=== PATIENT | female | born 1990 | race Caucasian/White ===

== ENCOUNTER 2021-01-16 00:12 | Emergency (ER) | payer BC, OTHER ==
[2021-01-16 00:27] VITALS: BP 121/77; PULSE 51
[2021-01-16] MEDS ORDERED: diphenhydrAMINE 25 MG Cap PO ONE (00:39)
--- NOTE | 2021-01-16 00:45 | EDM.PDOC ---
ED HPI GENERAL MEDICAL PROBLEM - General Chief Complaint: Genitourinary Problem Stated Complaint: BLOOD IN URINE Time Seen by Provider: 01/16/21 00:39 Source of Information: Reports: Patient History Limitations: Reports: No Limitations - History of Present Illness INITIAL COMMENTS - FREE TEXT/NARRATIVE: Josselin is a 30-year-old female from [facility] who is here visiting family. She reports that earlier today she started develop urgency, frequency, and burning with urination. She also started to notice hematuria. Patient does have a history of recurrent UTIs but also carries a recent diagnosis of interstitial cystitis. She has not had any fever or chills. She does have a previous history of pyelonephritis as well but denies any flank pain at this time. He has been pushing fluids today. - Related Data Allergies Allergy/AdvReac Type Severity Reaction Status Date / Time sulfamethoxazole Allergy Hives Verified 01/16/21 00:29 [From ] trimethoprim [From ] Allergy Hives Verified 01/16/21 00:29 Home Meds: Home Meds Cetirizine [ZyrTEC] 10 mg PO DAILY 01/03/15 [History] Levothyroxine 75 mcg PO DAILY 01/03/15 [History] Escitalopram [Lexapro] 5 mg PO DAILY 01/16/21 [History] Past Medical History HEENT History: Reports: Impaired Vision Cardiovascular History: Reports: Heart Murmur Genitourinary History: Reports: UTI, Recurrent Musculoskeletal History: Reports: Fracture Neurological History: Reports: Concussion Psychiatric History: Reports: Anxiety, Depression Endocrine/Metabolic History: Reports: Hypothyroidism Dermatologic History: Reports: Urticaria Other Dermatologic History: chronic hives - Infectious Disease History Infectious Disease History: Reports: Chicken Pox - Past Surgical History HEENT Surgical History: Reports: Adenoidectomy, Tonsillectomy Social & Family History - Tobacco Use Tobacco Use Status *Q: Never Tobacco User - Recreational Drug Use Recreational Drug Use: Yes Drug Use in Last 12 Months: Yes Recreational Drug Type: Reports: Marijuana/Hashish Recreational Drug Use Frequency: Monthly ED ROS GENERAL - Review of Systems Review Of Systems: See Below Constitutional: Reports: No Symptoms HEENT: Reports: No Symptoms Respiratory: Reports: No Symptoms Cardiovascular: Reports: No Symptoms Endocrine: Reports: No Symptoms GI/Abdominal: Reports: Abdominal Pain (Suprapubic pain) : Reports: Dysuria, Frequency, Hematuria, Urgency Musculoskeletal: Reports: No Symptoms Skin: Reports: No Symptoms Neurological: Reports: No Symptoms Psychiatric: Reports: No Symptoms Hematologic/Lymphatic: Reports: No Symptoms Immunologic: Reports: No Symptoms ED EXAM, RENAL/ - Physical Exam Exam: See Below Exam Limited By: No Limitations General Appearance: Alert, No Apparent Distress Eye Exam: Bilateral Eye: EOMI, PERRL Head: Atraumatic, Normocephalic Respiratory/Chest: No Respiratory Distress, Lungs Clear, Normal Breath Sounds Cardiovascular: Normal Peripheral Pulses, Regular Rate, Rhythm, No Murmur GI/Abdominal: Normal Bowel Sounds, Soft, Tender (Mild suprapubic tenderness to palpation) Back Exam: Normal Inspection, Full Range of Motion. No: CVA Tenderness (R), CVA Tenderness (L) Neurological: Alert, Oriented, Normal Cognition, No Motor/Sensory Deficits Psychiatric: Normal Affect, Normal Mood Course - Vital Signs Last Recorded V/S: Last Vital Signs Temp 36.6 C 01/16/21 00:32 Pulse 51 L 01/16/21 00:32 Resp 16 01/16/21 00:32 BP 121/77 01/16/21 00:32 Pulse Ox 100 01/16/21 00:32 - Orders/Labs/Meds Labs: Laboratory Tests 01/16/21 Range/Units 00:25 Urine Color Other A (YELLOW) Urine Appearance Clear (CLEAR) Urine pH 6.5 (5.0-8.0) Ur Specific [place] 1.010 (1.008-1.030) Urine Protein Negative (NEGATIVE) mg/dL Urine Glucose (UA) Negative (NEGATIVE) mg/dL Urine Ketones Negative (NEGATIVE) mg/dL Urine Occult Blood Large H (NEGATIVE) Urine Nitrite Negative (NEGATIVE) Urine Bilirubin Negative (NEGATIVE) Urine Urobilinogen 0.2 (0.2-1.0) EU/dL Ur Leukocyte Esterase Small H (NEGATIVE) Urine RBC 0-5 (0-5) Urine WBC 5-10 H (0-5) Ur Epithelial Cells Few Amorphous Sediment Not seen Urine Bacteria Few Urine Mucus Not seen Meds: Medications Discontinued Medications Generic Name Dose Route Start Last Admin Trade Name Freq PRN Reason Stop Dose Admin Diphenhydramine HCl 25 mg 01/16/21 00:39 01/16/21 00:44 Diphenhydramine 25 Mg Cap PO 01/16/21 00:40 25 mg ONETIME ONE Administration - Re-Assessments/Exams Free Text/Narrative Re-Assessment/Exam: 01/16/21 00:47 reviewed the urinalysis which shows 5-10 WBCs with 0-5 RBCs and positive leukocyte esterase consistent with urinary tract infection. We will start patient on cephalexin 500 mg twice daily for 7 days. Patient should continue to push fluids. Indications return to the ED were discussed and she is suitable for discharge in satisfactory condition. In addition to her urinary tract infection, the patient had a spontaneous hives develop on her bottom lip of her mouth and was given diphenhydramine 25 mg for this. Departure - Departure Time of Disposition: 00:48 Disposition: Home, Self-Care 01 Clinical Impression: UTI, Urinary tract infectious disease - Discharge Information Instructions: Urinary Tract Infection, Adult, [id number] Referrals: ABIDA SANDOVAL [Other] Forms: ED Department Discharge Care Plan Goals: You are found to have a urinary tract infection that is in the early stages. We are going to start you on cephalexin 500 mg twice daily for 7 days. This Addisyn is been sent out to the [employer] machine which you can fill tonight and start right away. Sure to drink plenty of fluids. Sepsis Event Note (ED) - Evaluation Sepsis Screening Result: No Definite Risk - Focused Exam Vital Signs: Vital Signs Temp Pulse Resp BP Pulse Ox 01/16/21 00:32 36.6 C 51 L 16 121/77 100 01/16/21 00:25 36.6 C 51 L 16 121/77 100 - Problem List & Annotations (1) UTI, Urinary tract infectious disease SNOMED Code(s): 63124408 Code(s): N39.0 - URINARY TRACT INFECTION, SITE NOT SPECIFIED Status: Acute Priority: Medium Current Visit: Yes - Problem List Review Problem List Initiated/Reviewed/Updated: Yes
== END 2021-01-16 00:56 | disposition home or self-care (01) ==
LOC: JP.ED 00:12
DX: N39.0 Urinary tract infection, site not specified (principal); E03.9 Hypothyroidism, unspecified; Z79.899 Other long term (current) drug therapy; Z88.1 Allergy status to other antibiotic agents
CPT/HCPCS: 81001; 99283; A9270